=== PATIENT | female | born 1975 | race African-American/Black ===

== ENCOUNTER 2024-10-01 09:19 | Observation (INO) ==
--- NOTE | 2024-10-01 09:40 | Emergency Department Note ---
History of Present Illness General Chief complaint: GI Assessment Stated complaint: BLACK STOOL Time Seen by Provider: 10/01/24 09:30 History of Present Illness Maximum Pain Intensity: 10 This is a 49-year-old female that presents to the emergency department via private vehicle with complaints of "black tarry stool". The patient notes that for the past 3 days she has been experiencing abdominal pain, more in the right upper quadrant area as well as black tarry stool. She notes diarrhea, abdominal cramping. She also stopped eating secondary to the pain. Minimal fluid intake over the past few days. Patient does note that 2 days ago she was at [facility] where she underwent laboratory studies and CT scan of the abdomen/pelvis. She states that they wanted to admit her, but noted they did not have any GI specialist. She was ultimately discharged and notes she was informed that she should present to here if symptoms worsen as we do have GI on- call. Patient denies any fevers. No vomiting. Home Medications Medication Instructions Recorded Confirmed Type budesonide-formoterol HFA 160 2 puff inhalation BID PRN 07/22/21 10/01/24 History mcg-4.5 mcg/actuation aerosol Shortness Of Breath Or Wheezing inhaler (Symbicort) cetirizine 10 mg tablet (Zyrtec) 10 mg PO QAM 08/01/21 10/01/24 History clobetasol 0.05 % topical ointment 1 applic topical DAILY PRN ECZEMA 08/01/21 10/01/24 History Medical Marijuana Card 1 dose PO UD PRN CHRONIC BACK PAIN 05/04/22 10/01/24 History bismuth subsalicylate 262 mg/15 mL 524 mg PO QID PRN HX STOMACH ULCER 05/04/22 10/01/24 History oral suspension (Pepto-Bismol) fluticasone propionate 50 1 spray intranasal DAILY PRN 05/19/22 10/01/24 History mcg/actuation nasal Congestion spray,suspension albuterol sulfate 90 mcg/actuation 2 puffs inhalation QID PRN 07/04/23 10/01/24 Rx aerosol inhaler (Ventolin HFA) shortness of breath or wheezing #8.5 grams acetaminophen 300 mg-codeine 15 mg 1 tab PO BID PRN Severe Back Pain 12/09/23 10/01/24 History tablet albuterol sulfate 2.5 mg/3 mL 2.5 mg (3 mL) inhalation Q4H PRN 12/09/23 10/01/24 Rx (0.083 %) solution for nebulization shortness of breath or wheezing #90 mL duloxetine 60 mg capsule,delayed 60 mg PO DAILY 12/09/23 10/01/24 History release terbinafine HCl 250 mg tablet 0 mg PO DAILY 12/09/23 10/01/24 History cyclobenzaprine 10 mg tablet 10 mg PO HS 10/01/24 10/01/24 History multivitamin 1 tab PO DAILY 10/01/24 10/01/24 History pantoprazole 40 mg tablet,delayed 40 mg PO HS 10/01/24 10/01/24 History release prednisone 10 mg tablet See Rx Instructions .ROUTE 10/01/24 10/01/24 History .COMPLEX PRN asthma exacerbation vitamin B complex 1 tab PO DAILY 10/01/24 10/01/24 History Allergies Allergy/AdvReac Type Severity Reaction Status Date / Time metoclopramide [From Reglan] Allergy Severe Projectile Unverified 10/01/24 11:35 vomiting pine nut Allergy Severe ANYTHING Verified 10/01/24 11:35 PINE : anaphalyxis adhesive Allergy Intermediate Skin Unverified 10/01/24 11:35 Irritation adhesive tape Allergy Intermediate Skin Unverified 10/01/24 11:35 Irritation Penicillins Allergy Unknown PT DOESN'T Verified 10/01/24 11:35 KNOW RXN, RXN WAS AT A YOUNGER AGE - SEE NOTES escitalopram [From Lexapro] AdvReac Severe projectile Verified 10/01/24 11:35 vomiting olanzapine [From Zyprexa] AdvReac Severe projectile Verified 10/01/24 11:35 vomiting promethazine [From Phenergan] AdvReac Severe projectile Verified 10/01/24 11:35 vomiting Past Med/Surg History Problem List Diarrhea (Acute) Nausea (Acute) Abdominal pain, RUQ (Acute) Proctocolitis (Acute) Medical marijuana use Fibroids Scoliosis Asthma Arthritis Soft tissue benign neoplasm, upper extremity GERD (gastroesophageal reflux disease) Bipolar disorder Idiopathic scoliosis Lumbar radiculopathy (Acute) S/P excision of lipoma (09/25/19) 09/25/2019 RIGHT UPPER ARM MASS, EXCISION of a lipoma Dr. Swenson Path: FRAGMENTS OF MATURE ADIPOSE TISSUE CONSISTENT WITH LIPOMA. Medical History History of anesthesia reaction mother - n/v & slow to wake up Intermittent explosive disorder Tachycardia sometimes Eczema Fibromyalgia GERD (gastroesophageal reflux disease) flares with stress Asthma uses albuterol every day for the past few months. Stomach ulcer dx few yrs ago/recent flare/pepto prn History of back problems Bronchitis hx Anemia hx- INFUSION 2011 Surgical History S/P endometrial ablation H/O wisdom tooth extraction History of bilateral tubal ligation Previous section Previous back surgery 1991 & 2014 S/P lumpectomy, left breast X 2 breast lipoma on left breast AND LEFT UPPER ARM H/O esophagogastroduodenoscopy Family History Father Diabetes Myocardial infarction Grandfather Cancer Aunt Cancer Mother Diabetes Heart disease Hypertension Stroke Grandmother Diabetes Other Family history of multiple myeloma Family history of ovarian cancer Family history of throat cancer Social History Smoking Status: Never smoker Tobacco Type: E-cigarettes / Vaping Second Hand Exposure: No; Do You Dip or Chew Tobacco: No; Hx Alcohol Use: No Hx Substance Use: Yes Last Used Substance: Days (ago) Substance Use Type Other:: [facility] C[facility] - INSTRUCTED TO BRING CARD Preferred Language: Belarusian Communication Ability: Effective Prototype Sewer Required: No Beliefs That Will Affect Care: Amish Amish Beliefs: ANABAPTISM marital status: Current Living Situation: Spouse and Family Current Living Situation Comment: , 3 DAUGHTERS AND MOTHER IN LAW current occupational status: employed current occupation: mental health tech Feels Safe at Home: Yes Diet: vegetarian Assistive Devices: Glasses Review of Systems A total of 10 systems reviewed and were otherwise negative Physical Exam Vital Signs Vital Signs - 24 hr 10/01/24 09:25 10/01/24 09:48 10/01/24 10:00 Temperature 36.7 C Temperature Source Oral Pulse Rate 110 H 102 H 92 H Pulse Rate [Apical] Respiratory Rate 20 20 Respiratory Effort / Characteristics Non-Labored Spontaneous Respiratory Depth Normal Respiratory Pattern Regular Blood Pressure 148/88 H 134/82 Blood Pressure [Right Arm] Blood Pressure Mean 108 100 Blood Pressure Mean [Right Arm] Pulse Oximetry 98 100 Oxygen Delivery Method Room Air Room Air Sepsis Recent Fever Within 48 Hours No Sepsis New/Unexplained Change in Mental Status N/A Sepsis Action Taken by Nursing No Action Required 10/01/24 11:00 Temperature Temperature Source Pulse Rate Pulse Rate [Apical] 94 H Respiratory Rate 15 Respiratory Effort / Characteristics Non-Labored Spontaneous Respiratory Depth Normal Respiratory Pattern Regular Blood Pressure Blood Pressure [Right Arm] 124/82 Blood Pressure Mean Blood Pressure Mean [Right Arm] 96 Pulse Oximetry 97 Oxygen Delivery Method Room Air Sepsis Recent Fever Within 48 Hours Sepsis New/Unexplained Change in Mental Status Sepsis Action Taken by Nursing VITAL SIGNS - Vital signs and nursing notes were reviewed. Mother hypertensive, tachycardic at 110, otherwise stable and afebrile. GENERAL - 49-year-old female appearing her stated age who is in no acute distress. Communicates well with provider and answers questions appropriately. SKIN - Without rashes. HEAD - NC/AT. EYES - PERRL with EOMI bilaterally. Sclera anicteric. EARS - No deformities of external structures noted on gross examination bilaterally. NOSE - Midline and without cyanosis. No epistaxis or purulent drainage noted. MOUTH/OROPHARYNX - Without perioral cyanosis. NECK - Neck with FROM. No nuchal rigidity. LUNGS - CTA CARDIAC - RRR ABDOMEN - Abdominal contour normal without pulsations or visible masses. BS normoactive all four quadrants. RUQ abd ttp noted. No palpable masses, hepatosplenomegaly, or ascites noted. EXTREMITIES - No clubbing or peripheral cyanosis. +5/5 strength noted in UE/LE bilaterally. NEUROLOGIC - Cranial nerves II through XII grossly intact. PSYCH -alert, oriented and pleasant on exam Course Administered Medications Discontinued Medications Sodium Chloride (Nss) 1,000 mls @ 999 mls/hr IV .Q1H1M ONE Stop: 10/01/24 11:27 Last Infusion: 10/01/24 11:46 Dose: Infused Documented By: Admin: 10/01/24 10:43 Dose: 999 mls/hr Documented By: YUNG Morphine Sulfate (Morphine Sulfate 2 Mg/Ml Carp) 2 mg IV NOW STA Stop: 10/01/24 11:27 Last Admin: 10/01/24 11:32 Dose: 2 mg Documented By: JL Ondansetron HCl (Ondansetron Inj 2 Mg/Ml 2 Ml Vial) 4 mg IV NOW STA Stop: 10/01/24 11:27 Last Admin: 10/01/24 11:32 Dose: 4 mg Documented By: JL Medical Decision Making Laboratory Data 10/01/24 09:47 10/01/24 09:47 Lab Results 10/01/24 10/01/24 10/01/24 Range/Units 09:46 09:47 12:53 WBC 6.33 (4.8-10.8) K/ul RBC 4.51 (4.20-5.40) M/uL Hgb 13.1 (12.0-16.0) g/dl Hct 38.8 (37.0-47.0) % MCV 86.0 (80.0-100.0) fL MCH 29.0 (25.0-34.0) pg MCHC 33.8 (32.0-36.0) g/dL RDW Std Deviation 39.9 (36.4-46.3) fL RDW Coeff of Greg 12.7 (11.5-14.5) % Plt Count 247 (130-400) K/uL MPV 10.6 (9.4-12.4) fL Immature Gran % (Auto) 0.2 % Neut % (Auto) 49.0 % Lymph % (Auto) 33.5 % [place] % (Auto) 9.0 % Eos % (Auto) 7.7 % Baso % (Auto) 0.6 % Neut # (Auto) 3.10 (1.40-6.50) K/uL Lymph # (Auto) 2.12 (1.20-3.40) K/uL [place] # (Auto) 0.57 (0.11-0.59) K/uL Eos # (Auto) 0.49 (0.00-0.50) K/uL Baso # (Auto) 0.04 (0.00-0.20) K/uL Immature Gran # (Auto) 0.01 (0.01-0.20) K/uL PT 10.9 (9.0-12.0) Seconds INR 1.0 (0.9-1.1) APTT 29 (21-31) Seconds PTT Ratio 1.1 Sodium 140 (136-145) mmol/L Potassium 3.6 (3.5-5.1) mmol/L Chloride 103 (98-107) mmol/L Carbon Dioxide 31 (21-32) mmol/L Anion Gap 6 (3-11) BUN 9 (6-23) mg/dl Creatinine 0.84 (0.6-1.2) mg/dl Est Cr Clr Drug Dosing 74.9 ml/min eGFR 84.61 BUN/Creatinine Ratio 10.7 (10-20) Glucose 113 H (70-99(Fasting)) mg/dl Lactate 0.5 (0.4-2.0) mmol/L Calcium 9.3 (8.6-10.3) mg/dl Total Bilirubin 0.4 (0.2-1.0) mg/dl AST 16 (13-39) U/L ALT 15 (7-52) U/L Alkaline Phosphatase 53 (34-104) U/L C-Reactive Protein 0.84 H Cancelled (0-0.5) mg/dl Total Protein 7.7 (6.0-8.3) gm/dl Albumin 4.4 (3.4-5.0) gm/dl Globulin 3.3 (2.5-4.0) gm/dl Albumin/Globulin Ratio 1.3 (0.9-2) Lipase 9 L (11-82) U/L HCG, Qual Negative (Negative) Blood Type O Positive Antibody Screen NEGATIVE MDM Narrative Patient was seen and evaluated as above in room B04. Review was performed of triage nursing notes and vital signs. After obtaining a thorough history and physical examination the above work up was performed. Patient presents for evaluation of right upper quadrant abdominal pain, diarrhea, nausea/vomiting in the a.m. with poor oral intake over the past few days. Patient states that she was at [facility] recently in the ED and underwent CT scan of the abdomen/pelvis. I was able to obtain record from [facility] and reviewed the ED visit, laboratory studies as well as a CT scan of the abdomen/pelvis which was a CT angio abdomen/pelvis with and without contrast bleeding protocol. This was interpreted as no active arterial extravasation or abnormal enhancement within the bowel to suggest active GI bleed. There was comment of scattered areas of mild circumferential thickening involving the majority of the colon and rectum with a few areas of minimal pericolonic fat stranding. Findings are consistent with a near diffuse proctocolitis which favors an inflammatory or infectious process. There was comment of enlarged fibroid uterus. 9 mm hypervascular lesion likely hemangioma. Options of care were discussed with the patient. IV access was established. Labs were drawn. Patient initially declined analgesia but was amenable later in the stay. She was medicated with IV fluids, IV Zofran, IV morphine. There is no leukocytosis or concerning anemia. Coags normal. No emergent metabolic disturbance. CRP elevated at 0.84. hCG negative. Lactate within normal range. Blood type a positive/type and screen performed. I discussed multiple options with patient and at bedside. Benefit versus risk of inpatient versus outpatient management reviewed. Stool studies ordered including stool PCR and C. difficile however no stool sample as of yet. We are in agreement that further evaluation and management in the inpatient setting is warranted. Hospitalist service consulted. Please refer to further documentation regarding her stay. GCS: 15 In the evaluation and treatment of this patient the following differential diagnoses were entertained: Acute GI bleed, ulcerative colitis, C. difficile colitis, gastroenteritis, ischemic colitis, among others Impression & Plan Proctocolitis, Abdominal pain, RUQ, Nausea, Diarrhea Discharge Plan Visit Data Chief Complaint: GI Assessment Stated Complaint: BLACK STOOL ED Provider: Loan Madsen ED Midlevel Provider: Matt Gottlieb Discharge Problem: Proctocolitis, Abdominal pain, RUQ, Nausea, Diarrhea Patient Disposition: Admitted As Inpatient Condition: Good Discharge Instructions Interventions: ED Discharge Assessment Last Done: 10/01/24 14:27
[2024-10-01 10:00] LABS: Hematocrit (blood only) 38.8 % (37.0-47.0); Hemoglobin 13.1 g/dl (12.0-16.0); Immature Granulocytes # (auto) 0.01 K/uL (0.01-0.20); Immature Granulocytes % (auto) 0.2 %; Mean Corpuscular Hemoglobin 29.0 pg (25.0-34.0); Mean Corpuscular Volume 86.0 fL (80.0-100.0); Platelet Count 247 K/uL (130-400); RDW Standard Deviation 39.9 fL (36.4-46.3); Red Blood Count 4.51 M/uL (4.20-5.40); White Blood Count 6.33 K/ul (4.8-10.8)
[2024-10-01 10:16] LABS: Alanine Aminotransferase 15.0 U/L (7-52); Albumin Globulin Ratio 1.3 (0.9-2); Alkaline Phosphatase 53.0 U/L (34-104); Bilirubin,Total 0.4 mg/dl (0.2-1.0); Blood Urea Nitrogen 9.0 mg/dl (6-23); Calcium 9.3 mg/dl (8.6-10.3); Carbon Dioxide 31.0 mmol/L (21-32); Creatinine Clr Calc Pharmacy 74.9 ml/min; Globulin 3.3 gm/dl (2.5-4.0); Glucose 113.0 mg/dl (70-99(Fasting)); Lipase 9.0 U/L (11-82); Total Protein 7.7 gm/dl (6.0-8.3)
[2024-10-01 10:18] LABS: Pregnancy Test, Serum Negative (Negative)
[2024-10-01 10:22] LABS: Anion Gap 6.0 (3-11); Chloride 103.0 mmol/L (98-107); Potassium 3.6 mmol/L (3.5-5.1); Sodium 140.0 mmol/L (136-145)
[2024-10-01 10:29] LABS: INR 1.0 (0.9-1.1); Partial Thromboplastin Time 29 Seconds (21-31); Prothrombin Time 10.9 Seconds (9.0-12.0)
[2024-10-01] MEDS: SODIUM CHLORIDE 0.9% 1,000 ML IV ONE (10:43)
[2024-10-01] MEDS: ONDANSETRON INJ 2 MG/ML 2 ML VIAL IV STA (11:32)
[2024-10-01] MEDS: MoRPHine SULFATE 2 MG/ML CARP IV STA (11:32)
[2024-10-01] MEDS ORDERED: MELATONIN 3 MG TAB PO PRN (12:56)
[2024-10-01] MEDS ORDERED: POLYETHYLENE (MIRALAX) 17 GM PACK PO PRN (12:56)
--- NOTE | 2024-10-01 14:33 | History & Physical Report ---
Date of Service October 01, 2024 Assessment & Plan (1) Proctocolitis: (2) GERD (gastroesophageal reflux disease): (3) Asthma: (4) Idiopathic scoliosis: Plan Patient is a 49 year old female with PMH of GERD, HH, asthma, and scoliosis presented into the ED with severe abdominal pain. Patient has not been tolerating fluids as she would immediately want to go to the bathroom. Patient has stopped eating since Wednesday due to the pain. Patient's noted black tarry stools and that the patient currently has diarrhea. (To note, Patient takes Pepto Bismol at home). Patient first went to [place] where they said the patient could either stay at [facility] to be observed, go to [facility], or go back home. Patient at the time wanted to go home. However, symptoms worsened and she presented into [facility] today. [facility] performed CTA of the abdomen and pelvis where they didnt find any evidence of active GI bleed, but found the imaging was consistent with proctocolitis. Patient and her reported her mom and cousins have a form of inflammatory bowel disease. Patient's denies patient currently taking prednisone for about a month. Reported that the prednisone was for her asthma. (10/01 labs) * WBC: 6.33 * Hgb: 13.1 * Hct: 38.8 * Plt count: 247 * CMP unremarkable * Alk. phos: 53 * Lipase: 9 #Proctolitis -[facility] CT findings (09/29): * No active arterial extraversion or abnormal enhancement within the bowel to suggest active GI bleed * Scattered areas of mild circumferential thickening involving the majority of the colon and rectum with a few areas of minimal pericolonic fat stranding. Findings are consistent with a near diffuse proctocolitis which favors an inflammatory or infectious process * Enlarged fibroid uterus measuring 6.4cm * 9mm hpervascular lesion within the left hepatic dome. This is technically too small to characterize but may represent a flash filling hemangioma. * Gallbladder, pancreas, spleen, and adrenal glands are unremarkable. -Ordered GI consult for colitis. -Ordered IVF LR 150ml/hr -Ordered morphine 2mg PRN -Held patient's home medication of acetaminophen-codeine due to ordering morphine for more severe pain. -Held patient's home medication of pantoprazole. Ordering IV protonix 40mg BID -Held patient's Pepto-Bismol -Ordered stool study for pathogens #Asthma -Continue albuterol PRN -Continue Symbicort -Continue fluticasone -Hasnt used her prednisone in a month #Eczema -Continue Clobetasol as needed #Allergies -Continue Zyrtec #Scoliosis -Continue duloxetine -Continue cyclobenzaprine Full Code DVT propholaxysis: Lovenox Admission and Anticipated Discharge Date Admission Date: October 01, 2024 History of Present Illness Chief Complaint: Abdominal Pain, Black Tarry Stool Primary Care Provider: Marion Guerra DO Patient with past medical history of GERD presents into the ED with severe abdom inal pain and black tarry stools. The patient was currently on morphine for pain so talked with her to gather history. The stated that the pain started about a week ago. They went to [facility] on 09/29 where they have done some imaging. Because [facility] did not have a GI specialist, patient told she could either stay at [facility] to be observed, go to [facility], or go back home. Patient at the time wanted to go home. However, symptoms worsened and she presented to [facility]. Patient's stated that patient stopped eating on Wednesday due to the pain. He also stated that even when the patient drinks water her stomach cramps and feels like she has to go to the restroom. Patient's reports the patient was having black and tarry stools and that he could "smell the iron in the air". Patient currently has diarrhea and has not passed gas a lot in the past couple of days. Patient and patient's stated she has family history (Mom and cousins) of inflammatory bowel diseases. Patient's said she was having cold sweats and her legs look a bit swollen. Allergies Allergy/AdvReac Type Severity Reaction Status Date / Time metoclopramide [From Reglan] Allergy Severe Projectile Unverified 10/01/24 11:35 vomiting pine nut Allergy Severe ANYTHING Verified 10/01/24 11:35 PINE : anaphalyxis adhesive Allergy Intermediate Skin Unverified 10/01/24 11:35 Irritation adhesive tape Allergy Intermediate Skin Unverified 10/01/24 11:35 Irritation Penicillins Allergy Unknown PT DOESN'T Verified 10/01/24 11:35 KNOW RXN, RXN WAS AT A YOUNGER AGE - SEE NOTES escitalopram [From Lexapro] AdvReac Severe projectile Verified 10/01/24 11:35 vomiting olanzapine [From Zyprexa] AdvReac Severe projectile Verified 10/01/24 11:35 vomiting promethazine [From Phenergan] AdvReac Severe projectile Verified 10/01/24 11:35 vomiting Home Medications Medication Instructions Recorded Confirmed Type budesonide-formoterol HFA 160 2 puff inhalation BID PRN 07/22/21 10/01/24 History mcg-4.5 mcg/actuation aerosol Shortness Of Breath Or Wheezing inhaler (Symbicort) cetirizine 10 mg tablet (Zyrtec) 10 mg PO QAM 08/01/21 10/01/24 History clobetasol 0.05 % topical ointment 1 applic topical DAILY PRN ECZEMA 08/01/21 10/01/24 History Medical Marijuana Card 1 dose PO UD PRN CHRONIC BACK PAIN 05/04/22 10/01/24 History bismuth subsalicylate 262 mg/15 mL 524 mg PO QID PRN HX STOMACH ULCER 05/04/22 10/01/24 History oral suspension (Pepto-Bismol) fluticasone propionate 50 1 spray intranasal DAILY PRN 05/19/22 10/01/24 History mcg/actuation nasal Congestion spray,suspension albuterol sulfate 90 mcg/actuation 2 puffs inhalation QID PRN 07/04/23 10/01/24 Rx aerosol inhaler (Ventolin HFA) shortness of breath or wheezing #8.5 grams acetaminophen 300 mg-codeine 15 mg 1 tab PO BID PRN Severe Back Pain 12/09/23 10/01/24 History tablet albuterol sulfate 2.5 mg/3 mL 2.5 mg (3 mL) inhalation Q4H PRN 12/09/23 10/01/24 Rx (0.083 %) solution for nebulization shortness of breath or wheezing #90 mL duloxetine 60 mg capsule,delayed 60 mg PO DAILY 12/09/23 10/01/24 History release terbinafine HCl 250 mg tablet 0 mg PO DAILY 12/09/23 10/01/24 History cyclobenzaprine 10 mg tablet 10 mg PO HS 10/01/24 10/01/24 History multivitamin 1 tab PO DAILY 10/01/24 10/01/24 History pantoprazole 40 mg tablet,delayed 40 mg PO HS 10/01/24 10/01/24 History release prednisone 10 mg tablet See Rx Instructions .ROUTE 10/01/24 10/01/24 History .COMPLEX PRN asthma exacerbation vitamin B complex 1 tab PO DAILY 10/01/24 10/01/24 History Past Med/Surg History Problem List Diarrhea (Acute) Nausea (Acute) Abdominal pain, RUQ (Acute) Proctocolitis (Acute) Medical marijuana use Fibroids Scoliosis Asthma Arthritis Soft tissue benign neoplasm, upper extremity GERD (gastroesophageal reflux disease) Bipolar disorder Idiopathic scoliosis Lumbar radiculopathy (Acute) S/P excision of lipoma (09/25/19) 09/25/2019 RIGHT UPPER ARM MASS, EXCISION of a lipoma Dr. Swenson Path: FRAGMENTS OF MATURE ADIPOSE TISSUE CONSISTENT WITH LIPOMA. Medical History History of anesthesia reaction mother - n/v & slow to wake up Intermittent explosive disorder Tachycardia sometimes Eczema Fibromyalgia GERD (gastroesophageal reflux disease) flares with stress Asthma uses albuterol every day for the past few months. Stomach ulcer dx few yrs ago/recent flare/pepto prn History of back problems Bronchitis hx Anemia hx- INFUSION 2011 Surgical History S/P endometrial ablation H/O wisdom tooth extraction History of bilateral tubal ligation Previous section Previous back surgery 1991 & 2014 S/P lumpectomy, left breast X 2 breast lipoma on left breast AND LEFT UPPER ARM H/O esophagogastroduodenoscopy Family History Father Diabetes Myocardial infarction Grandfather Cancer Aunt Cancer Mother Diabetes Heart disease Hypertension Stroke Grandmother Diabetes Other Family history of multiple myeloma Family history of ovarian cancer Family history of throat cancer Social History Smoking Status: Never smoker Tobacco Type: E-cigarettes / Vaping Second Hand Exposure: No; Do You Dip or Chew Tobacco: No; Tobacco Cessation Education Requested by Patient: No Hx Alcohol Use: No Hx Substance Use: No Preferred Language: Irish Communication Ability: Effective Family Independence Case Manager Required: No Beliefs That Will Affect Care: None marital status: Current Living Situation: Other Current Living Situation Comment: , 3 DAUGHTERS AND MOTHER IN LAW current occupational status: employed current occupation: mental health tech Other Information That Helps Us Care for You: No Feels Safe at Home: Yes Safety Concerns: Feels Safe At This Time Diet: vegetarian Assistive Devices: None Review of Systems Review of Systems: per subjective HPI Physical Exam Constitutional: + altered mental status (was currently o n morphine when performing exam) Respiratory: normal respiratory effort, lungs clear to auscultation Cardiovascular: RRR, no murmur, no edema Gastrointestinal (Abdomen): Percussion/Palpation: + abdomen tender (in all quadrants. Worse in RUQ) Results & Data Results & Data Vital Signs (Past 12 Hours) Vital Signs Temp Pulse Pulse Resp BP BP Pulse Ox 10/01/24 13:00 97 H 17 127/74 96 10/01/24 11:00 94 H 15 124/82 97 10/01/24 10:00 92 H 20 134/82 100 10/01/24 09:48 102 H 10/01/24 09:25 36.7 C 110 H 20 148/88 H 98 O2 Del Method 10/01/24 13:00 Room Air 10/01/24 11:00 Room Air 10/01/24 10:00 Room Air 10/01/24 09:48 10/01/24 09:25 Room Air Supervising Physician Co-Signing Physician Notes ATTESTATION I also saw the patient and confirmed an portions of the history and exam. I agree with the impression and plan in the resident documentation, and as summarized below. Patient initially seen in the ED at [facility] on 09/29 after several day history of abdominal cramping, increased stools turning dark, tarry, and odorous. CT demonstrated colitis; lab work was relatively normal. Patient felt a little better with IVF - was given option of transfer or discharge home since no GI service at [facility]. Feeling better, patient opted to go home. However, improvement was short-lived and she spent most of the next day in bed with continued cramping and little PO. She presented to the ED here this morning and was referred to us for admission. Takes Pepto but has never noted black stools similar to what she has now with Pepto. She has a prior GI history of GERD and HH. Reports having EGD many years ago ([facility]). Had upper GI with air contrast here in Jul, 2024. Has never had a colonoscopy, although one was in the works. Family history (Mom and maternal-side cousins) with inflammatory bowel disease. EXAM Hemodynamically stable, mild tachycardia Alert and oriented; looks tired. CV regular but tachycardia Lungs CTA ABD with generalized tenderness in all givens. (+) BS DATA Labs WBC normal HgB 13.1 BMP unremarkable Lactate 0.[address] angio ABD from [facility] reviewed Micro Urine culture from [facility] shows mixed colonies. IMPRESSION & PLAN Colitis Abdominal Pain GERD Hiatal Hernia Admission Pain control IVF Protonix IV BID Stool studies Consult GI Additional per resident documentation
[2024-10-01] MEDS ORDERED: CLOBETASOL PROPIONATE 0.05% OINT 15 GM TUBE EXT PRN (15:26)
[2024-10-01] MEDS ORDERED: FLUTICASONE PROPIONATE NA SPR 16 GM BTL PRN (15:26)
[2024-10-01] MEDS ORDERED: ALBUTEROL HFA 8 GM INHALER INH PRN (15:26)
[2024-10-01] MEDS ORDERED: ALBUTEROL 0.083% NEBU SOLN 3 ML VIAL INH PRN (15:26)
[2024-10-01] MEDS ORDERED: ACETAMINOPHEN CODEINE PO PRN (15:26)
[2024-10-01] MEDS ORDERED: FLUTICASONE/VILANTEROL 100/25MCG 14 PUFFS/INHALER INH PRN (15:36)
[2024-10-01] MEDS: LACTATED RINGER'S 1,000 ML IV SCH (16:03)
[2024-10-01] MEDS: MoRPHine SULFATE 2 MG/ML CARP IV PRN (16:55)
[2024-10-01] MEDS: CYCLOBENZAPRINE HCL 10 MG TAB PO SCH (20:32)
[2024-10-01] MEDS: PANTOprazole 40 MG/10 ML SYR IV SCH (20:33)
[2024-10-02 06:54] LABS: Hematocrit (blood only) 34.9 % (37.0-47.0); Hemoglobin 11.5 g/dl (12.0-16.0); Mean Corpuscular Hemoglobin 28.5 pg (25.0-34.0); Mean Corpuscular Volume 86.6 fL (80.0-100.0); Platelet Count 210 K/uL (130-400); RDW Standard Deviation 40.3 fL (36.4-46.3); Red Blood Count 4.03 M/uL (4.20-5.40); White Blood Count 4.78 K/ul (4.8-10.8)
[2024-10-02 07:18] LABS: Alanine Aminotransferase 11.0 U/L (7-52); Albumin Globulin Ratio 1.2 (0.9-2); Alkaline Phosphatase 41.0 U/L (34-104); Anion Gap 5.0 (3-11); Bilirubin,Total 0.4 mg/dl (0.2-1.0); Blood Urea Nitrogen 7.0 mg/dl (6-23); Calcium 8.6 mg/dl (8.6-10.3); Carbon Dioxide 31.0 mmol/L (21-32); Chloride 105.0 mmol/L (98-107); Creatinine Clr Calc Pharmacy 81.7 ml/min; Globulin 3.0 gm/dl (2.5-4.0); Glucose 86.0 mg/dl (70-99(Fasting)); Potassium 3.7 mmol/L (3.5-5.1); Sodium 141.0 mmol/L (136-145); Total Protein 6.7 gm/dl (6.0-8.3)
[2024-10-02 07:44] LABS: Immature Granulocytes # (auto) 0.01 K/uL (0.01-0.20); Immature Granulocytes % (auto) 0.2 %; RBC Morphology Unremarkable
[2024-10-02] MEDS: VITAMIN B COMPLEX TAB PO SCH (07:47)
[2024-10-02] MEDS: MULTIVITAMIN TAB PO SCH (07:47)
[2024-10-02] MEDS: CETIRIZINE HCL 10 MG TABLET PO SCH (07:47)
[2024-10-02] MEDS: ENOXAPARIN INJ 40 MG/0.4 ML SYR SQ SCH (07:47)
[2024-10-02] MEDS: ACETAMINOPHEN 325 MG TAB PO PRN (07:49)
--- NOTE | 2024-10-02 13:09 | Gastrointestinal Consultation ---
Date of Consultation October 02, 2024 Assessment & Plan (1) Abnormal CT scan, colon: -Stool PCR -Colonoscopy tomorrow for further evaluation of CT imaging findings of colitis. Supervising Physician Co-Signing Physician Notes Agree with ROSARIO Celis as above Abd: Soft, NT, ND, +BS Continue current therapy and supportive care Proceed with colonoscopy tomorrow. History of Present Illness Reason for Consultation: "colitis" Attending Physician: Desire Pat MD History of Present Illness Patient is a 49 yo female who follows with [facility]. She typically sees them for GERD/dysphagia and she has had EGDs and has attempted esophageal manometry studies with them as well. She reports an upcoming hiatal hernia repair scheduled for [place]. Recently, she developed abdominal pain and dark stools. She does take Pepto. She takes Protonix 40 mg daily at home. She notes the pain led her to [facility] ED on 09/29/24 and she was subsequently discharged. She notes her symptoms got worse so she went to [facility]. She describes the pain as epigastric. Even drinking water worsens the symptoms. She was reportedly having melena at some point during this. Family history includes IBD (mom and cousins). H/H 11.5/34.9. A CT scan from 09/29/24 at [facility] indicated circumferential thickening of the colon & rectum (suspected infectious vs inflammatory). She was noted to have uterine fibroids as well as probable liver hemangioma. CRP mildly elevated at 0.84. Allergies Allergy/AdvReac Type Severity Reaction Status Date / Time metoclopramide [From Reglan] Allergy Severe Projectile Unverified 10/01/24 11:35 vomiting pine nut Allergy Severe ANYTHING Verified 10/01/24 11:35 PINE : anaphalyxis adhesive Allergy Intermediate Skin Unverified 10/01/24 11:35 Irritation adhesive tape Allergy Intermediate Skin Unverified 10/01/24 11:35 Irritation Penicillins Allergy Unknown PT DOESN'T Verified 10/01/24 11:35 KNOW RXN, RXN WAS AT A YOUNGER AGE - SEE NOTES escitalopram [From Lexapro] AdvReac Severe projectile Verified 10/01/24 11:35 vomiting olanzapine [From Zyprexa] AdvReac Severe projectile Verified 10/01/24 11:35 vomiting promethazine [From Phenergan] AdvReac Severe projectile Verified 10/01/24 11:35 vomiting Home Medications Medication Instructions Recorded Confirmed Type budesonide-formoterol HFA 160 2 puff inhalation BID PRN 07/22/21 10/01/24 History mcg-4.5 mcg/actuation aerosol Shortness Of Breath Or Wheezing inhaler (Symbicort) cetirizine 10 mg tablet (Zyrtec) 10 mg PO QAM 08/01/21 10/01/24 History clobetasol 0.05 % topical ointment 1 applic topical DAILY PRN ECZEMA 08/01/21 10/01/24 History Medical Marijuana Card 1 dose PO UD PRN CHRONIC BACK PAIN 05/04/22 10/01/24 History bismuth subsalicylate 262 mg/15 mL 524 mg PO QID PRN HX STOMACH ULCER 05/04/22 10/01/24 History oral suspension (Pepto-Bismol) fluticasone propionate 50 1 spray intranasal DAILY PRN 05/19/22 10/01/24 History mcg/actuation nasal Congestion spray,suspension albuterol sulfate 90 mcg/actuation 2 puffs inhalation QID PRN 07/04/23 10/01/24 Rx aerosol inhaler (Ventolin HFA) shortness of breath or wheezing #8.5 grams acetaminophen 300 mg-codeine 15 mg 1 tab PO BID PRN Severe Back Pain 12/09/23 10/01/24 History tablet albuterol sulfate 2.5 mg/3 mL 2.5 mg (3 mL) inhalation Q4H PRN 12/09/23 10/01/24 Rx (0.083 %) solution for nebulization shortness of breath or wheezing #90 mL duloxetine 60 mg capsule,delayed 60 mg PO DAILY 12/09/23 10/01/24 History release terbinafine HCl 250 mg tablet 0 mg PO DAILY 12/09/23 10/01/24 History cyclobenzaprine 10 mg tablet 10 mg PO HS 10/01/24 10/01/24 History multivitamin 1 tab PO DAILY 10/01/24 10/01/24 History pantoprazole 40 mg tablet,delayed 40 mg PO HS 10/01/24 10/01/24 History release prednisone 10 mg tablet See Rx Instructions .ROUTE 10/01/24 10/01/24 History .COMPLEX PRN asthma exacerbation vitamin B complex 1 tab PO DAILY 10/01/24 10/01/24 History Patient History Medical History History of anesthesia reaction mother - n/v & slow to wake up Intermittent explosive disorder Tachycardia sometimes Eczema Fibromyalgia GERD (gastroesophageal reflux disease) flares with stress Asthma uses albuterol every day for the past few months. Stomach ulcer dx few yrs ago/recent flare/pepto prn History of back problems Bronchitis hx Anemia hx- INFUSION 2011 Surgical History S/P endometrial ablation H/O wisdom tooth extraction History of bilateral tubal ligation Previous section Previous back surgery 1991 & 2014 S/P lumpectomy, left breast X 2 breast lipoma on left breast AND LEFT UPPER ARM H/O esophagogastroduodenoscopy Family History Father Diabetes Myocardial infarction Grandfather Cancer Aunt Cancer Mother Diabetes Heart disease Hypertension Stroke Grandmother Diabetes Other Family history of multiple myeloma Family history of ovarian cancer Family history of throat cancer Social History Smoking Status: Never smoker Tobacco Type: E-cigarettes / Vaping Second Hand Exposure: No; Do You Dip or Chew Tobacco: No; Tobacco Cessation Education Requested by Patient: No Hx Alcohol Use: No Hx Substance Use: No Preferred Language: Citizen [place] Communication Ability: Effective Icebox Man Required: No Beliefs That Will Affect Care: None marital status: Current Living Situation: Other Current Living Situation Comment: , 3 DAUGHTERS AND MOTHER IN LAW current occupational status: employed 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 Other Information That Helps Us Care for You: No Feels Safe at Home: Yes Safety Concerns: Feels Safe At This Time Diet: vegetarian Assistive Devices: None Review of Systems Constitutional: no fever and no chills Gastrointestinal: + abdominal pain Psychiatric: no problem reported Physical Exam Constitutional: well developed Respiratory: normal respiratory effort Cardiovascular: Rate/Rhythm: regular rate Gastrointestinal (Abdomen): normal bowel sounds, soft, nontender, no hepatosplenomegaly Psychiatric: Orientation: alert and oriented x 3 Results & Data Vital Signs (Past 12 Hours) Vital Signs Temp Pulse Pulse Resp BP Pulse Ox O2 Del Method 10/02/24 11:11 36.9 C 111 H 18 149/80 H 99 Room Air 10/02/24 08:16 36.6 C 86 18 137/73 99 Room Air 10/02/24 07:22 86 10/02/24 02:50 36.5 C 87 18 145/77 H 97 Room Air PG Care Time/CCT Total # of Minutes Spent Total Time Spent with Patient: Total time spent is greater than 50% in coordination of care (as documented) at patient's floor/unit and/or counseling patient: Coding Level of Care Code 71436 IN/OBS CONSULT LVL 4,60M Diagnoses Abnormal CT scan, colon R93.3
--- NOTE | 2024-10-02 16:12 | Hospitalist Progress Note ---
Date of Service October 02, 2024 Assessment & Plan (1) Proctocolitis: (2) GERD (gastroesophageal reflux disease): (3) Asthma: (4) Idiopathic scoliosis: Plan Patient is a 49 year old female with PMH of GERD, hiatal hernia, asthma, and scoliosis who P/W severe abdominal pain, diarrhea, nausea, and sweats and chills for 1 week. She was seen at an outside hospital on 09/[address] angiogram of the abdomen/pelvis which showed pancolitis and proctitis but no evidence of bleeding or mesenteric artery stenoses. She presented to this hospital with ongoing symptoms and with black tarry stools. #Proctocolitis/abdominal pain/diarrhea/nausea-[facility] CT findings (09/29): No active arterial extraversion or abnormal enhancement within the bowel to suggest active GI bleed, scattered areas of mild circumferential thickening involving the majority of the colon and rectum with a few areas of minimal pericolonic fat stranding. Findings are consistent with a near diffuse proctocolitis which favors an inflammatory or infectious process. 9mm hypervascular lesion within the left hepatic dome. This is technically too small to characterize but may represent a flash filling hemangioma.Gallbladder, pancreas, spleen, and adrenal glands are unremarkable. Symptoms ongoing but has not been able to give a stool sample. Given sweats and chills and diffuse colitis, could have infectious colitis. Less likely IBD although does have autoimmune disorders in immediate family members and has been told by other GI doctors that she may have Crohn's disease-unclear what findings have been in the past on previous EGDs. Not likely to have ischemic colitis given normal CTA abdomen/pelvis - Decrease IV fluids to maintenance rate at 75 mL/h of LR - Continue pain control with IV morphine as needed - Clear liquids today and then n.p.o. after midnight for colonoscopy tomorrow- appreciate GI consultation - Check stool PCR and C. difficile when stool sample available #GERD/hiatal hernia-patient has been followed by GI at [facility] in [place] and is planning on having hiatal hernia repair surgically. Is still awaiting esophageal manometry as part of her preoperative testing -Continue IV protonix 40mg BID #Asthma-no acute issues -Continue albuterol PRN -Continue Symbicort -Continue fluticasone -Hasn't used her prednisone in a month #Eczema -Continue Clobetasol as needed #Allergies -Continue Zyrtec #Scoliosis -Continue duloxetine -Continue cyclobenzaprine - Has virtual appointment on 10/03 with pain management at [facility] for preoperative appointment for pain pump implantation #Fibroid uterus-CT A/P incidentally with multiple fibroids of the uterus with the dominant fibroid being 6.4 cm. She had uterine ablation in 2008 and has not had any vaginal bleeding since then - Follow-up with [facility] as an outpatient DVT prophylaxis-hold Lovenox considering possible GI bleed, add SCDs Disposition-downgrade to medical/surgical unit off telemetry Admission and Anticipated Discharge Date Admission Date: October 01, 2024 Subjective Patient tolerating clear liquids today, no bowel movements since admission. Abdominal pain persists but is less severe and is located in epigastric region. She has been having chills and sweats at home. I discussed her care with GI at the bedside. Telemetry with normal sinus rhythm with rates in the 60s to 80s Physical Exam Constitutional: WD/WN, vitals as above Respiratory: normal respiratory effort, lungs clear to auscultation Cardiovascular: RRR, no murmur, no edema Gastrointestinal (Abdomen): Inspection/Auscultation: abdomen normal to inspection and normal bowel sounds; abdomen not distended Percussion/Palpation: + abdomen tender (In epigastric region without guarding or rebound) and abdomen soft; no guarding, abdomen not rigid and no hepatosplenomegaly Psychiatric: A+Ox3, euthymic affect Results & Data Results & Data Vital Signs (Past 12 Hours) Vital Signs Temp Pulse Pulse Resp BP Pulse Ox O2 Del Method 10/02/24 15:28 108 H 10/02/24 11:11 36.9 C 111 H 18 149/80 H 99 Room Air 10/02/24 08:16 36.6 C 86 18 137/73 99 Room Air 10/02/24 07:22 86 Laboratory Results CBC, CMP reviewed PG Care Time/CCT Total # of Minutes Spent Total Time Spent with Patient: Total time spent is greater than 50% in coordination of care (as documented) at patient's floor/unit and/or counseling patient: Coding Level of Care Code 23260 SUB INP/OBS CARE 2/35MIN Diagnoses Proctocolitis K52.9 GERD (gastroesophageal reflux disease) K21.9 Asthma J45.909 Idiopathic scoliosis M41.20
[2024-10-02 17:07] LABS: Appearance Urine Clear (Clear); Glucose Urine UA Negative (Negative)
[2024-10-02] MEDS: LAVAGE SOLUTION 4000ML PO SCH (17:58)
[2024-10-02] MEDS ORDERED: LAVAGE SOLUTION 4000ML PO SCH (18:00)
[2024-10-02] MEDS: ONDANSETRON INJ 2 MG/ML 2 ML VIAL IV PRN (21:04)
[2024-10-03 05:23] VITALS: TEMP 97.9
[2024-10-03 06:38] LABS: Cdiff Toxin B Gene (2yr or >) Negative Cdiff Gene (Neg)
[2024-10-03 07:08] LABS: Adenovirus F 40/41 PCR Not Detected (NotDetected); Campylobacter PCR Not Detected (NotDetected); E.coli O157 PCR Not Detected (NotDetected); Enteroaggregative E.coli(EAEC) Not Detected (NotDetected); Vibrio species PCR Not Detected (NotDetected)
[2024-10-03 07:18] LABS: Shiga-like Toxin E.coli (STEC) DETECTED (NotDetected)
[2024-10-03 07:20] VITALS: BP 125/75; PULSE 89; RESP 16; O2SAT 97
[2024-10-03 07:40] LABS: Hematocrit (blood only) 33.9 % (37.0-47.0); Hemoglobin 11.6 g/dl (12.0-16.0); Mean Corpuscular Hemoglobin 29.1 pg (25.0-34.0); Mean Corpuscular Volume 85.0 fL (80.0-100.0); Platelet Count 215 K/uL (130-400); RDW Standard Deviation 37.7 fL (36.4-46.3); Red Blood Count 3.99 M/uL (4.20-5.40); White Blood Count 4.54 K/ul (4.8-10.8)
[2024-10-03 08:02] LABS: Immature Granulocytes # (auto) 0.01 K/uL (0.01-0.20); Immature Granulocytes % (auto) 0.2 %
[2024-10-03 08:08] LABS: Alanine Aminotransferase 12.0 U/L (7-52); Albumin Globulin Ratio 1.3 (0.9-2); Alkaline Phosphatase 40.0 U/L (34-104); Anion Gap 5.0 (3-11); Bilirubin,Total 0.4 mg/dl (0.2-1.0); Blood Urea Nitrogen 6.0 mg/dl (6-23); Calcium 8.8 mg/dl (8.6-10.3); Carbon Dioxide 32.0 mmol/L (21-32); Chloride 104.0 mmol/L (98-107); Creatinine Clr Calc Pharmacy 79.6 ml/min; Globulin 3.0 gm/dl (2.5-4.0); Glucose 91.0 mg/dl (70-99(Fasting)); Potassium 3.7 mmol/L (3.5-5.1); Sodium 141.0 mmol/L (136-145); Total Protein 6.8 gm/dl (6.0-8.3)
--- NOTE | 2024-10-03 10:02 | Gastroenterology Progress Note ---
Date of Service October 03, 2024 Assessment & Plan (1) Abnormal CT scan, colon: Plan: Patient is feeling much improved today. She was planned for colonoscopy but given that her stools came back positive for e coli shiga, would postpone this for now as we have a reason for her proctocolitis. patient was in agreement with this. - advance diet as tolerated. - recommend supportive care and let e coli shiga run its course. - recommend that she follow with her usual gastroenterology team at [facility] upon discharge. Admission and Anticipated Discharge Date Admission Date: October 01, 2024 Supervising Physician Co-Signing Physician Notes Agree with ROSARIO Monzon as above Patient was discharged prior to my evaluation. Subjective Patient is feeling much better. her stool studies did come back positive for e coli shiga. she denies nausea, vomiting, abdominal pain. she seems to be tolerating oral intake. Physical Exam Constitutional: WD/WN, vitals as above Respiratory: normal respiratory effort, lungs clear to auscultation Cardiovascular: Rate/Rhythm: regular rate and regular rhythm Gastrointestinal (Abdomen): normal bowel sounds, soft, nontender, no hepatosplenomegaly Psychiatric: Orientation: alert and oriented x 3 Affect: euthymic affect Results & Data Results & Data Vital Signs (Past 12 Hours) Vital Signs Temp Pulse Resp BP Pulse Ox O2 Del Method 10/03/24 07:07 97.9 F 89 16 125/75 97 Room Air Coding Level of Care Code 64186 SUB INP/OBS CARE 2/35MIN Diagnoses Abnormal CT scan, colon R93.3
--- NOTE | 2024-10-03 11:33 | Discharge Summary ---
Discharge Summary Date of Service October 03, 2024 Principal Dx & Hospital Course #1 = Principal Diagnosis (1) Shiga toxin-producing Escherichia coli infection: (2) Proctocolitis: (3) GERD (gastroesophageal reflux disease): (4) Asthma: Plan This patient is a 49 year old female with PMH of GERD, hiatal hernia, asthma, and scoliosis who P/W severe abdominal pain, diarrhea, nausea, and sweats and chills for 1 week. She was seen at an outside hospital on 09/[address] angiogram of the abdomen/pelvis which showed pancolitis and proctitis but no evidence of bleeding or mesenteric artery stenoses. She presented to this [facility] with ongoing symptoms and with black tarry stools. # Shiga toxin producing E. coli proctocolitis/abdominal pain/diarrhea/nausea- [facility] CT findings (09/29): No active arterial extraversion or abnormal enhancement within the bowel to suggest active GI bleed, scattered areas of mild circumferential thickening involving the majority of the colon and rectum with a few areas of minimal pericolonic fat stranding. Findings are consistent with a near diffuse proctocolitis which favors an inflammatory or infectious process. 9mm hypervascular lesion within the left hepatic dome. This is technically too small to characterize but may represent a flash filling hemangioma.Gallbladder, pancreas, spleen, and adrenal glands are unremarkable. She was going to have a bowel prep and do a colonoscopy but then her stool PCR was positive after admission for Shiga toxin producing E. coli, not 0157:H7. She was feeling much better after IV fluids and bowel rest. She was tolerating a low fiber diet by the time of discharge. The colonoscopy was canceled. She likely got the E. coli infection after eating undercooked hot wings shortly before her symptoms started. Appreciate GI consultation -Advised to not take antidiarrheals - No antibiotics indicated and in fact could make her condition worse - Continue to stay hydrated at home #GERD/hiatal hernia-patient has been followed by GI at [facility] in [place] and is planning on having hiatal hernia repair surgically. Is still awaiting esophageal manometry as part of her preoperative testing -Continue Protonix and follow-up with surgeon/GI as an outpatient #Asthma-no acute issues -Continue albuterol PRN -Continue Symbicort -Continue fluticasone -Hasn't used her prednisone in a month #Eczema -Continue Clobetasol as needed #Allergies -Continue Zyrtec #Scoliosis -Continue duloxetine -Continue cyclobenzaprine - Has virtual appointment on 10/03 with pain management at [facility] for preoperative appointment for pain pump implantation #Fibroid uterus-CT A/P incidentally with multiple fibroids of the uterus with the dominant fibroid being 6.4 cm. She had uterine ablation in 2008 and has not had any vaginal bleeding since then - Follow-up with [facility] as an outpatient DVT prophylaxis-SCDs Disposition-stable for discharge to home Notes For Next Care Provider Needs follow-up on fibroid uterus Medication Changes From Visit None Admission HPI Per Admitting Provider Patient with past medical history of GERD presents into the ED with severe abdominal pain and black tarry stools. The patient was currently on morphine for pain so talked with her to gather history. The stated that the pain started about a week ago. They went to [facility] on 09/29 where they have done some imaging. Because [facility] did not have a GI specialist, patient told she could either stay at [place] to be observed, go to [facility], or go back home. Patient at the time wanted to go home. However, symptoms worsened and she presented to [facility]. Patient's stated that patient stopped eating on Wednesday due to the pain. He also stated that even when the patient drinks water her stomach cramps and feels like she has to go to the restroom. Patient's reports the patient was having black and tarry stools and that he could "smell the iron in the air". Patient currently has diarrhea and has not passed gas a lot in the past couple of days. Patient and patient's stated she has family history (Mom and cousins) of inflammatory bowel diseases. Patient's said she was having cold sweats and her legs look a bit swollen. Discharge Exam Constitutional WD/WN, vitals as above Respiratory normal respiratory effort, lungs clear to auscultation Cardiovascular RRR, no murmur, no edema Gastrointestinal (Abdomen) Inspection/Auscultation: abdomen normal to inspection and normal bowel sounds; abdomen not distended Percussion/Palpation: abdomen soft; abdomen nontender, no guarding, abdomen not rigid and no hepatosplenomegaly Psychiatric A+Ox3, euthymic affect Discharge Plan Discharge Items Patient Disposition: Home - Self-Care Reason For Visit: ABDOMINAL PAIN RULE OUT GI BLEED Discharge Diagnosis: Shiga toxin producing E. coli colitis Condition on Discharge: Fair Activity: As commented below Lifting: Gradually increase as tolerated Bathing: No limitations Exercise/Sports: Gradually increase as tolerated Non-emergency contact: Primary Care Provider and Die Welder Call non-emergency contact if: you have any medication questions, your symptoms worsen, your pain is not controlled, your pain is worsening and your temperature is above 101 Follow-up/Referrals: Marion Guerra, [Primary Care Provider] - (Follow-up within 1-2 weeks.) Diet: Low Fiber Diet Comment: Remain on low fiber diet x 2 weeks Addtl Attending Provider Instructions: You were admitted with colitis with abdominal pain and diarrhea. This was found to be caused by E. coli which was likely from food poisoning. This will not be treated with antibiotics as sometimes this can make this infection worse. Please do not take antidiarrheal medication such as Imodium as this can also worsen the infection. Stay on a low fiber diet for 2 weeks until you are completely improved. Try to stay as hydrated as possible. Follow-up with your PCP within 1-2 weeks. If your symptoms become much worse again, please return to the hospital. Pending Studies at Discharge: No Stand-Alone Forms: My [facility], Smoking Cessation Medications and DC Order Prescriptions: Continued budesonide-formoterol [Symbicort] 160-4.5 mcg/actuation HFA aerosol inhaler 2 puff inhalation BID PRN (Reason: Shortness Of Breath Or Wheezing) Patient Comments: Patient taking this as needed, originally written for 2 puffs twice daily - 10/01/24 cetirizine [Zyrtec] 10 mg Tablet 10 mg PO QAM clobetasol 0.05 % ointment 1 applic topical DAILY PRN (Reason: ECZEMA) Rx Instructions: Apply to the left foot at night until cleared. fluticasone propionate 50 mcg/actuation spray,suspension 1 spray INTRANASAL DAILY PRN (Reason: Congestion) Medical Marijuana Card 1 dose PO UD PRN (Reason: CHRONIC BACK PAIN) bismuth subsalicylate [Pepto-Bismol] 262 mg/15 mL Suspension 524 mg PO QID PRN (Reason: HX STOMACH ULCER ) Patient Comments: SPORADIC acetaminophen-codeine 300-15 mg tablet 1 tab PO BID PRN (Reason: Severe Back Pain) terbinafine HCl 250 mg tablet 0 mg PO DAILY Patient Comments: Patient currently holding medication until her stomach is settled duloxetine 60 mg capsule,delayed release(DR/EC) 60 mg PO DAILY albuterol sulfate 2.5 mg /3 mL (0.083 %) solution for nebulization 2.5 mg inhalation Q4H PRN (Reason: shortness of breath or wheezing) Qty: 90 0RF cyclobenzaprine 10 mg tablet 10 mg PO HS Patient Comments: Originally written for 10mg twice daily as needed, but pt states she has been taking it once nightly. 09/19/24 pantoprazole 40 mg tablet,delayed release (DR/EC) 40 mg PO HS prednisone 10 mg tablet See Rx Instructions .ROUTE .COMPLEX PRN (Reason: asthma exacerbation) Patient Comments: Pt takes this as needed for asthma exacerbation: Start w/ 60mg by mouth once daily x 1 day; 50mg x 1 day; 40mg x 1 day; 30mg x 1 day; 20mg x 1 day then 10mg x 1 day Rx Instructions: Start w/ 60mg by mouth once daily x 1 day; 50mg x 1 day; 40mg x 1 day; 30mg x 1 day; 20mg x 1 day then 10mg x 1 day multivitamin Tablet 1 tab PO DAILY vitamin B complex Tablet 1 tab PO DAILY albuterol sulfate [Ventolin HFA] 90 mcg/actuation HFA aerosol inhaler 2 puffs INH QID PRN (Reason: shortness of breath or wheezing) Qty: 8.5 1RF Discharge Orders: Discharge Order (Routine); Ordered 10/03/24 Ordered By: Deisre Pat Admission Data Admit Date/Time: 10/01/24 12:56 Attending Provider: Desire Pat Admit Provider: Aaron Jones Primary Care Provider: Marion Guerra Other Providers: Jhon Mccormack; Richelle Xavier Jr Other Interventions: Discharge Summary Assessment (RN) Last Done: 10/03/24 11:43 Hospital Stay Data Consultations 10/01/24 12:31 ED Decision to Admit Stat 10/01/24 12:56 Consult Gastroenterology Routine Procedures Performed Operation Date: 10/03/24 17:35 <No data on this case meets the specified criteria> Pending Results Patient Have Any Pending Studies at Discharge: No Discharge Instructions Given to Patient (Per Discharging Provider) You were admitted with colitis with abdominal pain and diarrhea. This was found to be caused by E. coli which was likely from food poisoning. This will not be treated with antibiotics as sometimes this can make this infection worse. Please do not take antidiarrheal medication such as Imodium as this can also worsen the infection. Stay on a low fiber diet for 2 weeks until you are completely improved. Try to stay as hydrated as possible. Follow-up with your PCP within 1-2 weeks. If your symptoms become much worse again, please return to the hospital. Total Time Total Time Spent Total Time Spent (In Minutes): 35 minutes Total Time Includes: Examination of the Patient, Discharge Planning, Medication Reconciliation and Communication With Other Providers (GI) Coding Level of Care Code 59669 INP/OBS DISCH >30 MIN Diagnoses Shiga toxin-producing Escherichia coli infection A49.8 Proctocolitis K52.9 GERD (gastroesophageal reflux disease) K21.9 Asthma J45.909
== END 2024-10-03 14:07 | disposition home or self-care (01) | DRG 392 ==
LOC: ED 09:19 → 2N 12:56 → INTOOBSV 12:56 → SUATTDRO 12:56 → 2N 14:27 → 3N 10-02 21:46